=== PATIENT | male | born 1955 | race Two or more races ===

== ENCOUNTER 2023-01-26 14:04 | Emergency (ER) | payer OTHER ==
[~2023-01-26] VITALS: Ht 182.9 cm; Wt 100.0 kg
[2023-01-26] MEDS ORDERED: ONDANSETRON HCL 4 MG/2 ML VIAL IV ONE (14:30)
[2023-01-26] MEDS ORDERED: DexAMETHasone INJECTION 10 MG in D5W 5% 50 ML IV ONE (14:30)
[2023-01-26] MEDS ORDERED: IPRATROPIUM BROM 0.5 MG/2.5ML INH SOL NEB ONE (14:30)
[2023-01-26] MEDS ORDERED: ALBUTEROL MEDNEB 2.5 mg/3ml NEB NEB ONE (14:30)
[2023-01-26] MEDS ORDERED: MORPHINE SULFATE 4 MG/ML SYR/VIAL IV ONE (14:30)
[2023-01-26 15:14] LABS: Basophils # (auto) 0 10 ^3/uL (0-0.2); Basophils % (auto) 0.3 % (0.0-2.0); Eosinophils # (auto) 0 10 ^3/uL (0-0.8); Hematocrit 38.1 % (41.0-53.0); Hemoglobin 12.5 g/dL (13.5-17.5); Lymphocytes # (auto) 0.9 10 ^3/uL (0.4-5.4); Mean Corpuscular Hemoglobin 30.5 pg (28.0-32.0); Mean Corpuscular Hgb Conc. 32.8 g/dL (32.0-36.0); Monocytes # (auto) 0.8 10 ^3/uL (0-1.3); Monocytes % (auto) 11.1 % (0.0-12.0); Neutrophils # (auto) 5.9 10 ^3/uL (1.6-8.6); Neutrophils % (auto) 76.6 % (37.0-80.0); White Blood Cell 7.7 10^3/uL (4.4-10.8)
[2023-01-26 15:20] VITALS: PULSE 92; RESP 22; O2SAT 95
[2023-01-26 15:33] LABS: Alanine Aminotransferase 40 U/L (7-40); Alkaline Phosphatase 404 U/L (46-116); Anion Gap 6 (5-15); Aspartate Aminotransferase 76 U/L (13-40); BUN/Creatinine Ratio 31.1 (10.0-20.0); Blood Urea Nitrogen 23 mg/dL (9-23); Calcium 12.2 mg/dL (8.7-10.4); Carbon Dioxide 26 mmol/L (20-30); Chloride 106 mmol/L (98-107); Glucose 124 mg/dL (74-106); Lipase 22 U/L (12-53); Magnesium 2.2 mg/dL (1.6-2.6); Potassium 3.5 mmol/L (3.5-5.1); Sodium 138 mmol/L (136-145)
[2023-01-26 15:33] LABS: Lactic Acid w/Reflex 4.1 mmol/L (0.4-2.0)
[2023-01-26 15:34] LABS: Bilirubin, Total 0.9 mg/dL (0.2-1.0); Total Protein 4.8 g/dL (5.7-8.2)
[2023-01-26 20:37] VITALS: PULSE 109; RESP 26; O2SAT 96
[2023-01-26] MEDS ORDERED: ACETAMINOPHEN 325 MG TAB PO ONE (21:15)
[2023-01-26 23:45] VITALS: BP 104/61; PULSE 102; RESP 20; TEMP 98.2; O2SAT 94
== END 2023-01-26 19:34 | disposition short-term general hospital (02) ==
LOC: ER 14:04 → EDBD 14:04 → ER 19:34
DX: S80.02XA Contusion of left knee, initial encounter (principal); R06.02 Shortness of breath; I82.403 Acute embolism and thrombosis of unspecified deep veins of lower extremity, bilateral; C78.00 Secondary malignant neoplasm of unspecified lung; E83.52 Hypercalcemia; R06.03 Acute respiratory distress; R74.02 Elevation of levels of lactic acid dehydrogenase [LDH]; R79.1 Abnormal coagulation profile; R51.9 Headache, unspecified; W18.39XA Other fall on same level, initial encounter; Y93.89 Activity, other specified; Y92.098 Other place in other non-institutional residence as the place of occurrence of the external cause; Y99.8 Other external cause status
CPT/HCPCS: 36415; 70450; 71045; 73562; 74176; 80053; 83605; 83690; 83735; 83880; 85025; 85379; 87040; 93005; 93970; 94640; 96365; 96375; 99285; J1100; J2270; J2405; J7060; J7644